=== PATIENT | female | born 1985 | race Caucasian/White ===

== ENCOUNTER 2019-10-20 11:34 | Emergency (ER) | payer OTHER ==
[~2019-10-20] VITALS: Ht 165.1 cm; Wt 68.0 kg
[~2019-10-20 11:34] MED LIST: ONDANSETRON HCL4 M2 PO; PERCOCET PO
[2019-10-20] MEDS ORDERED: LAMOTRIGINE25 M1 PO (12:13)
[2019-10-20] MEDS ORDERED: XANAX 0.5 MG0.5 MG PO (12:13)
[2019-10-20] MEDS ORDERED: OXCARBAZEPINE600 MG PO (12:14)
[2019-10-20] MEDS ORDERED: OXTELLAR XR300 MG PO (12:15)
[2019-10-20] MEDS ORDERED: DIFLUCAN150 MG PO (13:10)
[2019-10-20 13:29] VITALS: BP 124/87
== END 2019-10-20 13:30 | disposition home or self-care (01) ==
LOC: ER 11:34
DX: J02.0 Streptococcal pharyngitis (principal); Z88.5 Allergy status to narcotic agent; Z79.899 Other long term (current) drug therapy